=== PATIENT | female | born 1965 | race Caucasian/White ===

== ENCOUNTER 2016-09-22 18:31 | Emergency (ER) | payer OTHER ==
[2016-09-22 18:37] VITALS: TEMP 98.2; BMI 34.8
--- NOTE | 2016-09-22 18:39 | PDOC ---
Rapid Medical Evaluation Chief Complaint: Blood Pressure Problem Time Seen by Provider: 09/22/16 18:34 Medical Evaluation: Allergies Allergy/AdvReac Type Severity Reaction Status Date / Time No Known Allergies Allergy Verified 10/12/13 08:22 09/22/16 18:36 RME Note: I have performed a brief, in-person evaluation of this patient . This patient presents with CC: with relative who translates; CC vaginal bleeding x 1 month; also elevated B/P Pertinent PE findings are: YJ=198; 158/ 85 I have ordered: labs The patient will proceed to ED for further evaluation. JR 09/22/16 18:39
[2016-09-22 19:22] LABS: BASOPHIL 0.5 % (0-2.0); EOSINOPHIL 0.5 % (0-4.5); MCH 23.4 pg (25.7-33.7); MCHC 30.8 g/dl (32.0-36.0); MEAN CELL VOLUME 75.8 fl (80-96); MEAN PLT VOLUME 8.3 fl (7.5-11.1); NEUTROPHILS 82.3 % (42.8-82.8); PLATELET COUNT 369 K/MM3 (134-434); RDW 27.4 % (11.6-15.6)
[2016-09-22 19:39] LABS: INR 1.08 (0.82-1.09); PROTHROMBIN TIME (PATIENT) 11.9 SEC (9.98-11.88)
[2016-09-22 19:41] LABS: ACTIVATED PTT 29.2 SECONDS (26.9-34.4)
[2016-09-22 19:44] LABS: ALBUMIN 3.5 g/dl (3.4-5.0); ALK PHOS 77 U/L (45-117); ANION GAP 9 (8-16); BILIRUBIN,TOTAL 0.2 mg/dL (0.2-1.0); CALCIUM 8.7 mg/dL (8.5-10.1); CO2 24 mmol/L (21-32); CREATININE 0.9 mg/dL (0.55-1.02); GLUCOSE,RANDOM 125 mg/dL (74-106); SGOT/AST 11 U/L (15-37); SGPT/ALT 17 U/L (12-78); TOT PROT 6.9 g/dl (6.4-8.2)
--- NOTE | 2016-09-22 20:00 | PDOC ---
History of Present Illness - History of Present Illness Initial Comments: 09/22/16 20:41 Patient is a 51 year old female with significant medical hx of HTN, HLD, CAD, iron deficiency anemia, uterine fibroids who is presenting to the ED with one month of vaginal bleeding. Patient is accompanied by daughter who provided history. Daughter reports the patient has had progressive vaginal bleeding over the past month that has become significantly heavier this past week. The daughter states that the patient saturated a pad between the time of traveling from home to the ED. Today the patient was feeling exceptionally weak and has been having fluctuations in her blood pressure. The patient contacted her OB/ [facility] who referred her to the ED for further evaluation. RN OPERATING ROOM: Victorino Bush MD PMD: Val Alfaro MD <Yuli De Guzman - Last Filed: 09/22/16 20:49> - General History Source: Patient Exam Limitations: No Limitations <Alvin Chinchilla - Last Filed: 09/26/16 08:47> - General Chief Complaint: Vaginal Bleeding Stated Complaint: PCP SENT/BLOOD PRESSURE PROBLEM Time Seen by Provider: 09/22/16 18:34 Past History <Yuli De Guzman - Last Filed: 09/22/16 20:49> - Past Medical History HTN: Yes - Psycho/Social/Smoking Cessation Hx Suicidal Ideation: No Smoking History: Never smoked Information on smoking cessation initiated: No Hx Alcohol Use: No Drug/Substance Use Hx: No Substance Use Type: None <Alvin Chinchilla - Last Filed: 09/26/16 08:47> - Past Medical History Allergies/Adverse Reactions: Allergies Allergy/AdvReac Type Severity Reaction Status Date / Time No Known Allergies Allergy Verified 09/22/16 18:37 Home Medications: Ambulatory Orders Aspirin [ASA -] 81 mg PO DAILY 09/22/16 Ferrous Sulfate 325 mg PO DAILY 09/22/16 Lisinopril 10 mg PO DAILY 09/22/16 Medroxyprogesterone Acetate [Provera] 5 mg PO BID #28 tablet 09/22/16 Metoprolol Tartrate [Lopressor -] 50 mg PO DAILY 09/22/16 Review of Systems - Review of Systems Comments:: 09/22/16 20:43 GENERAL/CONSTITUTIONAL: Generalized weakness. No fever or chills. HEAD, EYES, EARS, NOSE AND THROAT: No change in vision. No ear pain or discharge. No sore throat. CARDIOVASCULAR: Blood pressure fluctuation. No chest pain or shortness of breath. RESPIRATORY: No cough, wheezing, or hemoptysis. GASTROINTESTINAL: No nausea, vomiting, diarrhea or constipation. GENITOURINARY: Heavy vaginal bleeding. No dysuria, frequency, or change in urination. MUSCULOSKELETAL: No joint or muscle swelling or pain. No neck or back pain. SKIN: No rash NEUROLOGIC: No headache, vertigo, loss of consciousness, or change in strength/ sensation. <Yuli De Guzman - Last Filed: 09/22/16 20:49> *Physical Exam - Vital Signs Last Vital Signs Temp Pulse Resp BP Pulse Ox 98.2 F 106 H 18 153/85 98 09/22/16 18:33 09/22/16 18:33 09/22/16 18:33 09/22/16 18:33 09/22/16 18:33 - Physical Exam Comments: 09/22/16 20:45 GENERAL: Tired appearing. Awake, alert, and fully oriented, in no acute distress HEAD: No signs of trauma EYES: PERRLA, EOMI, sclera anicteric, conjunctiva clear ENT: Auricles normal inspection, hearing grossly normal, nares patent, oropharynx clear without exudates. Moist mucosa NECK: Normal ROM, supple, no lymphadenopathy, JVD, or masses LUNGS: Breath sounds equal, clear to auscultation bilaterally. No wheezes, and no crackles HEART: Regular rate and rhythm, normal S1 and S2, no murmurs, rubs or gallops ABDOMEN: Soft, nontender, normoactive bowel sounds. No guarding, no rebound. No masses EXTREMITIES: Normal range of motion, no edema. No clubbing or cyanosis. No cords, erythema, or tenderness NEUROLOGICAL: Cranial nerves II through XII grossly intact. Normal speech, normal gait SKIN: Warm, Dry, normal turgor, no rashes or lesions noted. ENDOCRINE: No increased thirst. No abnormal weight change. HEMATOLOGIC/LYMPHATIC: No anemia, easy bleeding, or history of blood clots. ALLERGIC/IMMUNOLOGIC: No hives or skin allergy. PELVIC: Cervical os closed. No CMT. No adnexal tenderness. Blood in the vault. <Yuli De Guzman - Last Filed: 09/22/16 20:49> - Vital Signs Last Vital Signs Temp Pulse Resp BP Pulse Ox 98.2 F 106 H 18 153/85 98 09/22/16 18:33 09/22/16 18:33 09/22/16 18:33 09/22/16 18:33 09/22/16 18:33 <Alvin Chinchilla - Last Filed: 09/26/16 08:47> ED Treatment Course - LABORATORY CBC & Chemistry Diagram: 09/22/16 18:50 09/22/16 18:50 - ADDITIONAL ORDERS Additional order review: Laboratory Results 09/22/16 09/22/16 09/22/16 18:50 18:50 18:50 INR 1.08 PTT (Actin FS) 29.2 Sodium 140 Potassium 3.7 Chloride 107 Carbon Dioxide 24 Anion Gap 9 BUN 10 Creatinine 0.9 D Creat Clearance w eGFR > 60 Random Glucose 125 H D Calcium 8.7 Total Bilirubin 0.2 D AST 11 L D ALT 17 Alkaline Phosphatase 77 Total Protein 6.9 Albumin 3.5 Blood Type O POSITIVE Antibody Screen Negative 09/22/16 18:50 RBC 3.62 MCV 75.8 L MCHC 30.8 L RDW 27.4 H MPV 8.3 Neutrophils % 82.3 Lymphocytes % 10.4 D Monocytes % 6.3 Eosinophils % 0.5 Basophils % 0.5 - RADIOLOGY Radiograph Interpretation: 09/22/16 20:49 Transvaginal US Impression: Several uterine intramural lesions are noted suggestive of leiomyomas. Mild thickening heterogeneous endometrium measuring 0.9 cm. Reported By: Richard Guido MD <Yuli De Guzman - Last Filed: 09/22/16 20:49> - LABORATORY CBC & Chemistry Diagram: 09/22/16 18:50 09/22/16 18:50 - ADDITIONAL ORDERS Additional order review: Laboratory Results 09/22/16 18:50 Sodium 140 Potassium 3.7 Chloride 107 Carbon Dioxide 24 Anion Gap 9 BUN 10 Creatinine 0.9 D Creat Clearance w eGFR > 60 Random Glucose 125 H D Calcium 8.7 Total Bilirubin 0.2 D AST 11 L D ALT 17 Alkaline Phosphatase 77 Total Protein 6.9 Albumin 3.5 09/22/16 18:50 RBC 3.62 MCV 75.8 L MCHC 30.8 L RDW 27.4 H MPV 8.3 Neutrophils % 82.3 Lymphocytes % 10.4 D Monocytes % 6.3 Eosinophils % 0.5 Basophils % 0.5 - RADIOLOGY Radiology Studies Ordered: Category Date Time Status TRANSVAGINAL ULTRASOUND US [US] Stat Ultrasound 09/22/16 19:46 Ordered <Alvin Chinchilla - Last Filed: 09/26/16 08:47> Medical Decision Making - Medical Decision Making 09/22/16 20:09 A portion of this note was documented by scribe services under my direction. I have reviewed the details of the note, within reason, and agree with the documentation with the following case summary and management plan written by me. Patient treated in the ED. Nursing notes are reviewed and incorporated into the medical decision-making. Vital signs reviewed. Peripheral IV access obtained by the nurse, laboratory studies are drawn and sent, reviewed and interpreted by myself. Vital Signs Temp Pulse Resp BP Pulse Ox 98.2 F 106 H 18 153/85 98 09/22/16 18:33 09/22/16 18:33 09/22/16 18:33 09/22/16 18:33 09/22/16 18:33 51-year-old female with past medical history of iron deficiency anemia, hypertension, coronary disease presents to the emergency department for vaginal bleeding and generalized weakness. The patient was recently discharged on September 15 for a chest pain workup. She was subsequently discharged. She was noted at that time to have a hematocrit of 28. The patient has been having intermittent vaginal bleeding for a month and a half. Patient's printing machine operator tape rules and copywriting intern Dr. Bush has been evaluated the patient including a biopsy and suspects that this is fibroids. The bleeding has worsened last several days. The patient has been feeling generally weak but denies any chest pain or shortness of breath. Bleeding has become worse so the patient came to the ED. She denies any pain. Patient's hemoglobin is stable at this moment. However, we'll obtain a transvaginal ultrasound. Patient's copywriting intern is at the bedside Dr. Bush who will follow along. This bleeding is likely secondary to fibroids. 09/22/16 22:15 CBC, BMP 09/22/16 18:50 09/22/16 18:50 CMP Sodium 140 mmol/L (136-145) 09/22/16 18:50 Potassium 3.7 mmol/L (3.5-5.1) 09/22/16 18:50 Chloride 107 mmol/L (98-107) 09/22/16 18:50 Carbon Dioxide 24 mmol/L (21-32) 09/22/16 18:50 Anion Gap 9 (8-16) 09/22/16 18:50 BUN 10 mg/dL (7-18) 09/22/16 18:50 Creatinine 0.9 mg/dL (0.55-1.02) D 09/22/16 18:50 Creat Clearance w eGFR > 60 (>60) 09/22/16 18:50 Random Glucose 125 mg/dL (74-106) H D 09/22/16 18:50 Calcium 8.7 mg/dL (8.5-10.1) 09/22/16 18:50 Total Bilirubin 0.2 mg/dL (0.2-1.0) D 09/22/16 18:50 AST 11 U/L (15-37) L D 09/22/16 18:50 ALT 17 U/L (12-78) 09/22/16 18:50 Alkaline Phosphatase 77 U/L (45-117) 09/22/16 18:50 Creatine Kinase 57 IU/L (26-192) 09/22/16 18:50 Troponin I < 0.02 ng/ml (0.00-0.05) 09/22/16 18:50 Total Protein 6.9 g/dl (6.4-8.2) 09/22/16 18:50 Albumin 3.5 g/dl (3.4-5.0) 09/22/16 18:50 Labs reviewed. Hct stable. Ultrasound reviewed. Several uterine intramural lesions are noted suggestive of leiomyomas. The patient case was discussed with Dr. Trevino. Dr. Trevino had came and examined the patient. He recommends provera 5 mg BID x 2 weeks and follow up with Dr. Bush. Return precautions given. Patient is ambulatory and feels more reassured. I discussed the physical exam findings, ancillary test results and final diagnoses with the patient. I answered all of the patient's questions. The patient was satisfied with the care received and felt comfortable with the discharge plan and treatment plan. The patient will call their primary care physician within 24 hours to arrange follow-up and will return to the Emergency Department with any new, persistant or worsening symptoms. <Alvin Chinchilla - Last Filed: 09/26/16 08:47> *DC/Admit/Observation/Transfer - Attestations Scribe Attestion: 09/22/16 20:46 Documentation prepared by Yuli De Guzman, acting as medical reimbursement specialist for Alvin Chinchilla MD. <Yuli De Guzman - Last Filed: 09/22/16 20:49> - Discharge Dispostion Admit: No <Alvin Chinchilla - Last Filed: 09/26/16 08:47> Diagnosis at time of Disposition: Fibroid (bleeding) (uterine) Qualifiers: Uterine leiomyoma location: unspecified location Qualified Code(s): D25.9 - Leiomyoma of uterus, unspecified - Discharge Dispostion Disposition: HOME Condition at time of disposition: Stable - Prescriptions Prescriptions: Medroxyprogesterone Acetate [Provera] 5 mg PO BID #28 tablet - Referrals Referrals: Val Alfaro [Primary Care Provider] - Victorino Bush MD [Staff Physician] - - Patient Instructions Printed Discharge Instructions: Facts About Fibroids, DI for Uterine Fibroids Additional Instructions: Your bleeding is from your fibroids. Your Hct is stable. Please take the provera 5 mg every 12 hours as prescribed for the next 2 weeks. If you have uncontrollable bleeding, please return to the ER for further evaluation. Call Dr. Bush tomorrow and schedule a follow up.
[2016-09-22 20:52] LABS: ANISOCYTOSIS 3+; MICROCYTOSIS 2+; POLYCHROMASIA 1+
[2016-09-22 20:53] LABS: TROPONIN I < 0.02 ng/ml (0.00-0.05)
[2016-09-22 22:37] VITALS: BP 136/78; PULSE 84
--- NOTE | 2016-09-23 09:40 | EKG ---
Test Reason : Blood Pressure : / mmHG Vent. Rate : 085 BPM Atrial Rate : 085 BPM P-R Int : 150 ms QRS Dur : 072 ms QT Int : 350 ms P-R-T Axes : 045 032 030 degrees QTc Int : 416 ms NORMAL SINUS RHYTHM NONSPECIFIC ST ABNORMALITY ABNORMAL ECG WHEN COMPARED WITH ECG OF 12-OCT-2013 09:00, PREMATURE VENTRICULAR COMPLEXES ARE NO LONGER PRESENT Confirmed by YAEL TAMAYO MD ([id number]) on 09/23/2016 9:40:01 AM Referred By: Confirmed By:YAEL TAMAYO MD
== END 2016-09-22 22:37 | disposition home or self-care (01) ==
LOC: JER 18:31
DX: D25.9 Leiomyoma of uterus, unspecified (principal); D50.8 Other iron deficiency anemias; I10 Essential (primary) hypertension
CPT/HCPCS: 36415; 76830-TC; 80053; 82550; 84484; 85025; 85610; 85730; 86850; 86900; 86901; 93005; 93010; 99284-25

== ENCOUNTER 2016-10-10 20:04 | Inpatient (IN) | payer OTHER ==
--- NOTE | 2016-10-10 22:02 | PDOC ---
History of Present Illness <Rayne Cai - Last Filed: 10/11/16 00:15> - General History Source: Patient Exam Limitations: No Limitations - History of Present Illness Initial Comments: 10/10/16 23:57 Patient is a 51 year old female with significant medical hx of HTN, HLD, iron deficiency anemia, uterine fibroids who is presenting to the ED with two months of vaginal bleeding. Patient was seen in the ED 09/22 with the same complaint sent by her LICENSED REACTOR OPERATOR for further evaluation. Patient was seen by Dr. James, supervisor dehydrogenation LICENSED REACTOR OPERATOR, saw her during that ED visit. Patient had an transvaginal US and lab work last H&H was 8.5 and 27. Patient was prescribed Provera 5 mg PO BID for 2 weeks and was told to follow up. Patient has an appointment with her OB/ WEARING APPAREL SHAKER tomorrow but she was experiencing generalized weakness today on her way home that she presented to the ED tonight. Patient was seen in [facility] 09/14/16 and was admitted for htn had full work up and discharge home no history of CAD. LICENSED REACTOR OPERATOR: Victorino Bush MD PMD: Val Alfaro MD <Yandy Schwartz - Last Filed: 10/11/16 00:24> - General Chief Complaint: Revisit, Lab Variance Stated Complaint: VAGINAL BLEEDING/WEAKNESS Time Seen by Provider: 10/10/16 21:40 Past History - Past Medical History HTN: Yes - Reproductive History (#): 3 Para: 3 Cervical CA: No Dysfunctional Uterine Bleeding: Yes Ectopic : No Endometrial CA: No Polycystic Ovaries: No Therapeutic (s) & number: No Tubal Ligation: No Spontaneous : 0 - Immunization History Immunization Up to Date: Yes - Psycho/Social/Smoking Cessation Hx Suicidal Ideation: No Smoking History: Never smoked Hx Alcohol Use: No Drug/Substance Use Hx: No Substance Use Type: None <Rayne Cai - Last Filed: 10/11/16 00:15> <Yandy Schwartz - Last Filed: 10/11/16 00:24> - Past Medical History Allergies/Adverse Reactions: Allergies Allergy/AdvReac Type Severity Reaction Status Date / Time No Known Allergies Allergy Verified 10/10/16 20:27 Home Medications: Ambulatory Orders Ferrous Sulfate 325 mg PO DAILY 09/22/16 Lisinopril 10 mg PO DAILY 09/22/16 Medroxyprogesterone Acetate [Provera] 5 mg PO BID #28 tablet 09/22/16 Metoprolol Tartrate [Lopressor -] 50 mg PO DAILY 09/22/16 Review of Systems - Review of Systems Able to Perform ROS?: Yes Comments:: 10/10/16 23:58 CONSTITUTIONAL: Absent: fever, chills, diaphoresis, generalized weakness, malaise, loss of appetite HEENT: Absent: rhinorrhea, nasal congestion, throat pain, throat swelling, difficulty swallowing, mouth swelling, ear pain, eye pain, visual Changes CARDIOVASCULAR: Absent: chest pain, syncope, palpitations, irregular heart rate, lightheadedness , peripheral edema RESPIRATORY: Absent: cough, shortness of breath, dyspnea with exertion, orthopnea, wheezing, stridor, hemoptysis GASTROINTESTINAL: Absent: abdominal pain, abdominal distension, nausea, vomiting, diarrhea, constipation, melena, hematochezia GENITOURINARY: Present: vaginal bleeding Absent: dysuria, frequency, urgency, hesitancy, hematuria, flank pain, genital pain MUSCULOSKELETAL: Absent: myalgia, arthralgia, joint swelling SKIN: Absent: rash, itching, pallor HEMATOLOGIC/IMMUNOLOGIC: Absent: easy bleeding, easy bruising, lymphadenopathy, frequent infections ENDOCRINE: Absent: unexplained weight gain, unexplained weight loss, heat intolerance, cold intolerance NEUROLOGIC: Absent: headache, focal weakness or paresthesias, dizziness, unsteady gait, seizure, mental status changes, bladder or bowel incontinence PSYCHIATRIC: Absent: anxiety, depression, suicidal or homicidal ideation, hallucinations. <Yandy Schwartz - Last Filed: 10/11/16 00:24> *Physical Exam - Vital Signs Last Vital Signs Temp Pulse Resp BP Pulse Ox 98.5 F 100 H 20 126/65 99 10/10/16 20:28 10/10/16 20:28 10/10/16 20:28 10/10/16 20:28 10/10/16 20:28 <Rayne Cai - Last Filed: 10/11/16 00:15> - Vital Signs Last Vital Signs Temp Pulse Resp BP Pulse Ox 98.5 F 100 H 20 126/65 99 10/10/16 20:28 10/10/16 20:28 10/10/16 20:28 10/10/16 20:28 10/10/16 20:28 - Physical Exam Comments: 10/10/16 23:59 GENERAL: Well developed, well nourished. Awake and alert. No acute distress. HEENT: Normocephalic, atraumatic. PERRLA, EOMI. No conjunctival pallor. Sclera are non- icteric. Moist mucous membranes. Oropharynx is clear. NECK: Supple. Full ROM. No JVD. Carotid pulses 2+ and symmetric, without bruits. No thyromegaly. No lymphadenopathy. CARDIOVASCULAR: Regular rate and rhythm. No murmurs, rubs, or gallops. Distal pulses are 2+ and symmetric. PULMONARY: No evidence of respiratory distress. Lungs clear to auscultation bilaterally. No wheezing, rales or rhonchi. ABDOMINAL: Soft. Non-tender. Non-distended. No rebound or guarding. No organomegaly. Normoactive bowel sounds. MUSCULOSKELETAL Normal range of motion at all joints. No bony deformities or tenderness. No CVA tenderness. EXTREMITIES: No cyanosis. No clubbing. No edema. No calf tenderness. SKIN: Warm and dry. Normal capillary refill. No rashes. No jaundice. NEUROLOGICAL: Alert, awake, appropriate. Cranial nerves 2-12 intact. No deficits to light touch and temperature in face, upper extremities and lower extremities. No motor deficits in the in face, upper extremities and lower extremities. Normoreflexic in the upper and lower extremities. Normal speech. PSYCHIATRIC: Cooperative. Good eye contact. Appropriate mood and affect. PELVIC EXAM: +moderate bleeding. <Yandy Schwartz - Last Filed: 10/11/16 00:24> ED Treatment Course - LABORATORY CBC & Chemistry Diagram: 10/10/16 22:12 10/10/16 22:12 <Rayne Cai - Last Filed: 10/11/16 00:15> - LABORATORY CBC & Chemistry Diagram: 10/10/16 22:12 10/10/16 22:12 - ADDITIONAL ORDERS Additional order review: Laboratory Results 10/10/16 10/10/16 10/10/16 22:12 22:12 22:12 INR 1.13 Sodium 142 Potassium 4.0 Chloride 109 H Carbon Dioxide 23 Anion Gap 10 BUN 13 D Creatinine 0.8 Creat Clearance w eGFR > 60 Random Glucose 93 D Calcium 8.8 Total Bilirubin 0.3 D AST 8 L D ALT 17 Alkaline Phosphatase 63 Total Protein 6.5 Albumin 3.6 Blood Type O POSITIVE Antibody Screen Negative 10/10/16 22:12 RBC 2.90 L MCV 84.6 MCHC 30.6 L RDW 26.0 H MPV 7.9 Neutrophils % 66.3 Lymphocytes % 24.2 D Monocytes % 7.5 Eosinophils % 1.6 D Basophils % 0.4 <Yandy Schwartz - Last Filed: 10/11/16 00:24> Medical Decision Making - Medical Decision Making 10/10/16 23:56 A call was placed to Dr. Bush. Awaiting a call back from 10/11/16 00:22 Case discussed with doctor supervisor dehydrogenation. Patient will be admitted for the hospital and will be transfused. Patient requests any procedures to be done by her OB/ WEARING APPAREL SHAKER Dr. Bush. <Yandy Schwartz - Last Filed: 10/11/16 00:24> *DC/Admit/Observation/Transfer - Discharge Dispostion Admit: Yes <Rayne Cai - Last Filed: 10/11/16 00:15> - Attestations Scribe Attestion: 10/11/16 00:00 Documentation prepared by KELLY Marie, acting as medical records coder for Rayne Cai MD. <Yandy Schwartz - Last Filed: 10/11/16 00:24> Diagnosis at time of Disposition: Fibroid (bleeding) (uterine) Qualifiers: Uterine leiomyoma location: unspecified location Qualified Code(s): D25.9 - Leiomyoma of uterus, unspecified Anemia Qualifiers: Anemia type: unspecified type Qualified Code(s): D64.9 - Anemia, unspecified - Referrals Referrals: Val Alfaro [Primary Care Provider] -
[2016-10-10 22:32] LABS: BASOPHIL 0.4 % (0-2.0); EOSINOPHIL 1.6 % (0-4.5); MCH 25.9 pg (25.7-33.7); MCHC 30.6 g/dl (32.0-36.0); MEAN CELL VOLUME 84.6 fl (80-96); MEAN PLT VOLUME 7.9 fl (7.5-11.1); NEUTROPHILS 66.3 % (42.8-82.8); PLATELET COUNT 403 K/MM3 (134-434); WHITE BLOOD COUNT 6.9 K/mm3 (4.0-10.0)
[2016-10-10 22:47] LABS: INR 1.13 (0.82-1.09); PROTHROMBIN TIME (PATIENT) 12.5 SEC (9.98-11.88)
[2016-10-10 22:55] LABS: ALBUMIN 3.6 g/dl (3.4-5.0); ANION GAP 10 (8-16); BILIRUBIN,TOTAL 0.3 mg/dL (0.2-1.0); CALCIUM 8.8 mg/dL (8.5-10.1); CO2 23 mmol/L (21-32); CREATININE 0.8 mg/dL (0.55-1.02); GLUCOSE,RANDOM 93 mg/dL (74-106); SGOT/AST 8 U/L (15-37); SGPT/ALT 17 U/L (12-78); TOT PROT 6.5 g/dl (6.4-8.2)
[2016-10-10 22:56] LABS: ALK PHOS 63 U/L (45-117)
[2016-10-10 23:44] LABS: ANISOCYTOSIS 3+; HYPOCHROMIA 2+; MICROCYTOSIS 3+; OVALOCYTES 1+; PLATELET ESTIMATE ADEQUATE (NORMAL); POIKILOCYTOSIS 1+; TEAR DROP CELLS 1+
[2016-10-11] MEDS ORDERED: diphenhydrAMINE HCL 25 MG CAPSULE (FP) PO ONE ×2 (03:15→07:30)
[2016-10-11] MEDS ORDERED: ACETAMINOPHEN 325 MG TABLET (FP) PO ONE ×2 (03:15→07:30)
[2016-10-11 03:17] VITALS: BMI 32.1
--- NOTE | 2016-10-11 09:47 | HP ---
Admitting History and Physical - Primary Care Physician PCP: Victorino Bush - Admission Chief Complaint: 51 yo P3 with 3 weeks of persistent vaginal bleading, presented to ER c/o feeling very tiered, no chest pain, no palpitations, Hgb 7.5 , agreed to 2Units of packed cells History of Present Illness: reports 4 years of very irregular menses, skips 4 month at a time, now has very prolonged bleeding for 3 weeks, changing pads every hour; She also has known fibroid uterus History Source: Patient Limitations to Obtaining History: No Limitations (I speak patient's language) - Past Medical History Cardiovascular: Yes: HTN Hepatobiliary: Yes: Cholelithiasis Reproductive: Yes: Other (She has h/o D&C for DUB in 2013 in [facility] ...LMP: 10/08/16 ...LMP Comment: heavy bleeding for several weeks ...: No Heme/Onc: Yes: Anemia Additional Past Medical History: x 3 One child from cardiac defect - Past Surgical History Past Surgical History: Yes: Breast Biopsy, Cholecystectomy Additional Past Surgical History: D&C 2012 - Smoking History Smoking history: Never smoked Have you smoked in the past 12 months: No - Alcohol/Substance Use Hx Alcohol Use: No History of Substance Use: reports: None - Social History Usual Living Arrangement: Yes: Other (With family) Home Medications - Allergies Allergies/Adverse Reactions: Allergies Allergy/AdvReac Type Severity Reaction Status Date / Time No Known Allergies Allergy Verified 10/10/16 20:27 - Home Medications Home Medications: Ambulatory Orders Ferrous Sulfate 325 mg PO DAILY 09/22/16 Lisinopril 10 mg PO DAILY 09/22/16 Medroxyprogesterone Acetate [Provera] 5 mg PO BID #28 tablet 09/22/16 Metoprolol Tartrate [Lopressor -] 50 mg PO DAILY 09/22/16 Family Disease History - Family Disease History Family Disease History: Other: Mother (Breast CA) Physical Examination Vital Signs: Vital Signs Temperature 98.2 F 10/11/16 01:45 Pulse Rate 84 10/11/16 01:45 Respiratory Rate 16 10/11/16 01:45 Blood Pressure 135/75 10/11/16 01:45 O2 Sat by Pulse Oximetry (%) 97 10/11/16 01:45 Constitutional: Yes: Well Nourished Neck: Yes: WNL Cardiovascular: Yes: WNL Respiratory: Yes: WNL Gastrointestinal: Yes: WNL Renal/: Yes: WNL, Menses Present (Soaked pad) Musculoskeletal: Yes: WNL Extremities: Yes: WNL Edema: No ...Motor Strength: WNL Psychiatric: Yes: WNL Imaging - Results Ultrasound: Pending, Report Reviewed (July 2016 @ [facility] c/w 12wk size uterus, 7cm posterior wall fibroid and Bl overies normal) Assessment/Plan 51 yo P2 with DUB, anemia of blood loss, fibroid uterus failed course of Provera 2 Units of PRBC, receiving currently Current VSS Place on add on schedule for D&C today Repeat CBC @ 1500 IVF, NPO EKG with PVCs, repeat post transfusion
[2016-10-11] MEDS ORDERED: LISINOPRIL 10 MG TABLET (FP) PO SCH (10:00)
[2016-10-11] MEDS ORDERED: DEXTROSE 5%-LACTATED RINGERS 1,000 ML IV SCH (14:30)
[2016-10-11 15:30] LABS: BASOPHIL 1.2 % (0-2.0); EOSINOPHIL 1.5 % (0-4.5); MCH 26.1 pg (25.7-33.7); MCHC 31.2 g/dl (32.0-36.0); MEAN CELL VOLUME 83.4 fl (80-96); MEAN PLT VOLUME 7.9 fl (7.5-11.1); NEUTROPHILS 56.7 % (42.8-82.8); PLATELET COUNT 342 K/MM3 (134-434); RDW 23.6 % (11.6-15.6); WHITE BLOOD COUNT 5.8 K/mm3 (4.0-10.0)
--- NOTE | 2016-10-11 17:24 | EKG ---
Test Reason : Blood Pressure : / mmHG Vent. Rate : 081 BPM Atrial Rate : 081 BPM P-R Int : 160 ms QRS Dur : 080 ms QT Int : 372 ms P-R-T Axes : 042 038 024 degrees QTc Int : 432 ms SINUS RHYTHM WITH PREMATURE SUPRAVENTRICULAR COMPLEXES NONSPECIFIC ST ABNORMALITY ABNORMAL ECG WHEN COMPARED WITH ECG OF 11-OCT-2016 00:56, NO SIGNIFICANT CHANGE WAS FOUND Confirmed by CHELSI DICKSON, SONAL ([id number]) on 10/11/2016 5:24:36 PM Referred By: Jonatan WALSH Confirmed By:SONAL GAGNON MD
--- NOTE | 2016-10-11 17:33 | EKG ---
Test Reason : Blood Pressure : / mmHG Vent. Rate : 086 BPM Atrial Rate : 086 BPM P-R Int : 154 ms QRS Dur : 072 ms QT Int : 352 ms P-R-T Axes : 045 034 039 degrees QTc Int : 421 ms SINUS RHYTHM WITH PREMATURE VENTRICULAR COMPLEXES NONSPECIFIC ST ABNORMALITY ABNORMAL ECG WHEN COMPARED WITH ECG OF 22-SEP-2016 20:35, PREMATURE VENTRICULAR COMPLEXES ARE NOW PRESENT Confirmed by SONAL GAGNON MD ([id number]) on 10/11/2016 5:33:22 PM Referred By: Confirmed By:SONAL GAGNON MD
[2016-10-11] MEDS ORDERED: PROPOFOL 20 ML ONE ×2 (18:16→18:17)
[2016-10-11] MEDS ORDERED: MIDAZOLAM HCL 2 MG/2 ML SINGLE DOSE VIAL ONE (18:17)
[2016-10-11] MEDS ORDERED: LIDOCAINE HCL/PF 2% SDV 5ML VIAL ONE (18:18)
[2016-10-11] MEDS ORDERED: ceFAZolin SODIUM 1 GM VIAL ONE ×2 (18:39)
[2016-10-11] MEDS ORDERED: DEXAMETHASONE SOD PHOSPHATE 4 MG/1 ML VIAL ONE (18:39)
[2016-10-11] MEDS ORDERED: ceFAZolin SODIUM 1 GM VIAL IVPB ONE (18:40)
[2016-10-11] MEDS ORDERED: METOPROLOL SUCCINATE 50 MG TAB.SR.24H (FP) PO ONE (18:49)
[2016-10-11] MEDS ORDERED: PROMETHAZINE HCL 25 MG/1 ML VIAL IVPUSH PRN (19:09)
[2016-10-11] MEDS ORDERED: LACTATED RINGERS SOLUTION 1,000 ML IV SCH (19:15)
--- NOTE | 2016-10-11 21:05 | OP ---
Operative Note - Note: Operative Date: 10/11/16 Pre-Operative Diagnosis: Menometrorrhagia. Fibroid uterus. Anemia due to blood loss Operation: Suction, D&C Findings: Anteverted uterus ~8 wks size. Active bleeding. Post-Operative Diagnosis: Same as Pre-op Surgeon: Victorino Bush Anesthesia: General Specimens Removed: Endometrial curettings Estimated Blood Loss (mls): 100 Blood Volume Replaced (mls): 0 Fluid Volume Replaced (mls): 700 Operative Report Dictated: Yes
[2016-10-11 21:41] VITALS: BP 112/65; PULSE 67; TEMP 98.3
--- NOTE | 2016-10-12 19:51 | OP ---
DATE OF OPERATION: 10/11/2016 PREOPERATIVE DIAGNOSIS: Menometrorrhagia. Fibroid uterus. Anemia due to acute blood loss. PREOPERATIVE DIAGNOSIS: Menometrorrhagia. Fibroid uterus. Anemia due to acute blood loss. PROCEDURE: Suction dilation and curettage. SURGEON: Nicolette Scott M.D. GLOBE CLEANER: None. ANESTHESIOLOGIST: Alfredito Martinez M.D. ANESTHESIA: General. COMPLICATIONS: None. ESTIMATED BLOOD LOSS: 100 mL. INTRAVENOUS FLUIDS: 700 mL. PATHOLOGY: Endometrial curettings. FINDINGS: Anteverted uterus approximately 8 weeks in size, no pelvic or adnexal masses. Active bleeding was noted from the uterus at the beginning of procedure. Scant endometrial curettings were noted during the curettage. PROCEDURE: The patient was met preoperatively. Risks, benefits, and alternatives of surgery were discussed in detail. All questions were answered. The risks of infection, bleeding, scarring, pain, perforation of the uterus, injury to surrounding or underlying organs or structures, etc., were explained. The patient verbalized her understanding and requested to proceed with the surgery. The patient was brought to the OR with the IV running. She was placed on the surgical table in the supine position. General anesthesia was achieved without difficulty. The patient was then placed in a dorsal lithotomy position using adjustable Gómez stirrups. The patient was examined under anesthesia with the findings as described previously. The patient was then prepped and draped in the usual sterile fashion. A weighted speculum was introduced inside the vagina with good visualization of the cervix. The anterior cervical lip was grasped with a tenaculum. The cervical os was dilated to accommodate size 23 Gilmore dilator. A suction curettage was performed. A sharp uterine curettage was also performed afterwards. The tissue was submitted to pathology for evaluation. Good hemostasis was noted at the end of the procedure. All of the instruments were then removed from the patient. Sponge, lap, and instrument counts are correct. The patient was returned to supine position. The patient was transferred to recovery room in stable condition. NICOLETTE SCOTT M.D. [id number]
--- NOTE | 2016-10-13 12:27 | PATH ---
Surgical Pathology Report Patient Name: GENO LEBRON [facility]. Rec. 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 Specimen(s) Received ENDOMETRIAL CURETTINGS Clinical History Uterine fibroids, menorrhagia, anemia Final Diagnosis ENDOMETRIUM, CURETTAGE: FRAGMENTS OF INACTIVE AND FOCALLY DISORDERED PROLIFERATIVE ENDOMETRIUM WITH EXTENSIVE STROMAL AND GLANDULAR BREAKDOWN CHANGES ALONG WITH AREAS MOST SUGGESTIVE OF ENDOMETRIAL POLYP. FRAGMENTS OF BENIGN SMOOTH MUSCLE WITH OVERLYING ENDOMETRIUM SUGGESTIVE OF SUBMUCOSAL LEIOMYOMAS/ADENOMYOMAS. FRAGMENTS OF BENIGN ENDOCERVICAL TISSUE WITH FOCAL SQUAMOUS METAPLASIA. Electronically Signed Jefferson Grubbs M.D. Gross Description Received in formalin labeled "endometrial curettage" is a 7.5 x 5.5 x 0.9 cm aggregate of red-brown soft tissue fragments. The formalin is filtered and the specimen is entirely submitted in 9 cassettes. /10/12/2016 saudi10/12/2016
== END 2016-10-11 22:05 | disposition home or self-care (01) | DRG 760 ==
LOC: JER 20:04 → JERBED 10-11 00:16 → UNDOADMIN 10-11 00:39 → J3W 10-11 02:15
PROVIDERS: ADMIT Obstetrics & Gynecology; ATTEND Obstetrics & Gynecology
PROC: 30233N1 Transfusion of Nonautologous Red Blood Cells into Peripheral Vein, Percutaneous Approach (ICD-10-PCS; 2016-10-11)
PROC: 10D07Z8 Extraction of Products of Conception, Other, Via Natural or Artificial Opening (ICD-10-PCS; principal; 2016-10-11 13:00)
DX: D25.0 Submucous leiomyoma of uterus (principal); D62 Acute posthemorrhagic anemia; N92.1 Excessive and frequent menstruation with irregular cycle; E78.5 Hyperlipidemia, unspecified; I10 Essential (primary) hypertension
CPT/HCPCS: 36415; 36430; 71010-TC; 80053; 84703; 85025; 85610; 86850; 86900; 86901; 86922; 88305-TC; 93005; 93010; 94760; 99285-25; P9038; P9058

== ENCOUNTER 2017-06-09 05:16 | Day surgery (SDC) | payer OTHER ==
[2017-05-31 11:33] VITALS: BMI 31.8
--- NOTE | 2017-06-09 10:35 | HP ---
Past Medical History - Primary Care Physician PCP:: Victorino Bush - Admission Chief Complaint: 52yo P1 with menometrorrhagia and severe anemia admitted for D& C, hysteroscopy, endommetrial ablation. History of Present Illness: Bleeding for several weeks with anemia due to acute blood loss, weakness, dizziness. 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: Other (Meningioma) Cardiovascular: Yes: HTN Pulmonary: No: Asthma, Bronchitis, Cancer, COPD, O2 Dependent, Pneumonia, Previously Intubated, Pulmonary Embolus, Pulmonary Fibrosis, Sleep Apnea, Other Gastrointestinal: No: Ascites, Cancer, Constipation, Crohn's Disease, Diverticulitis, Diverticulosis, Esophageal Varices, Gastritis, GERD, GI Bleed, Hemorrhoids, Hiatal Hernia, Inflamatory Bowel Disease, Irritable Bowel Disease, Pancreatitis, Peptic Ulcer Disease, Ulcerative Colitis, Other Hepatobiliary: Yes: Cholelithiasis Renal/: Yes: Other (adrenal adenoma) Reproductive: Yes: Fibroids ...Para: 1 Heme/Onc: Yes: Anemia Infectious Disease: No: AIDS, C-Diff, Herpes Zoster, HIV, MRSA, STD's, Tuberculosis, VREF, Other Psych: No: Addictions, Anxiety, Bipolar, Depression, Panic, Psychosis, Schizophrenia, Other Musculoskeletal: No: Bursitis, Chronic low back pain, Hemiparesis, Hemiplegia, Osteoarthritis, Paraplegia, Other Rheumatology: No: Fibromyalgia, Gout, Lupus, Rheumatoid Arthritis, Sarcoidosis, Vasculitis, Other ENT: No: Allergic Rhinitis, Sinusitis, Other Endocrine: Yes: Hyperthyroidism, Other (Thyroid nodule) Dermatology: No: Basal Cell, Cellulitis, Eczema, Melanoma, Psoriasis, Squamous Cell, Other - Past Surgical History Past Surgical History: Yes: Breast Biopsy, Cholecystectomy Hx Myomectomy: No Hx Transabdominal Cerclage: No Additional Surgical History: D&C 10/2016 - Smoking History Smoking history: Never smoked Have you smoked in the past 12 months: No - Alcohol/Substance Use Hx Alcohol Use: No History of Substance Use: reports: None - Social History Usual Living Arrangement: Yes: With Child ADL: Independent 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 History of Recent Travel: No Home Medications - Allergies Allergies/Adverse Reactions: Allergies Allergy/AdvReac Type Severity Reaction Status Date / Time No Known Allergies Allergy Verified 10/10/16 20:27 - Home Medications Home Medications: Ambulatory Orders Ferrous Sulfate 325 mg PO DAILY 09/22/16 Escitalopram Oxalate [Lexapro -] 5 mg PO DAILY 06/09/17 Multivitamins [Tab-A-Vit -] 1 tab PO DAILY 06/09/17 Valsartan 160 mg PO BID 06/09/17 Family Disease History - Family Disease History Family Disease History: Other: Mother (Breast CA) Review of Systems - Review of Systems Constitutional: reports: Weakness Eyes: reports: No Symptoms HENT: reports: No Symptoms Neck: reports: No Symptoms Cardiovascular: reports: No Symptoms Respiratory: reports: No Symptoms Gastrointestinal: reports: No Symptoms Genitourinary: reports: Vaginal Bleeding Breasts: reports: No Symptoms Reported Musculoskeletal: reports: No Symptoms Integumentary: reports: No Symptoms Neurological: reports: No Symptoms Endocrine: reports: No Symptoms Hematology/Lymphatic: reports: No Symptoms Psychiatric: reports: No Symptoms Pain Intensity: 0 Physical 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 Vital Signs: Vital Signs Temperature 97.4 F L 06/09/17 06:42 Pulse Rate 79 06/09/17 06:42 Respiratory Rate 20 06/09/17 06:42 Blood Pressure 122/62 06/09/17 06:42 O2 Sat by Pulse Oximetry (%) 99 06/09/17 06:42 Constitutional: Yes: No Distress, Calm, Obese Eyes: Yes: WNL, Conjunctiva Clear, EOM Intact HENT: Yes: WNL, Atraumatic, Normocephalic Neck: Yes: WNL, Supple, Trachea Midline Cardiovascular: Yes: WNL, Regular Rate and Rhythm Respiratory: Yes: WNL, Regular, CTA Bilaterally Gastrointestinal: Yes: WNL, Normal Bowel Sounds, Soft ...Rectal Exam: Yes: Deferred Renal/: Yes: WNL External Genitalia: Yes: Normal Internal Exam Deferred: No Vaginal Exam: Yes: Normal, Bleeding Cervix: Yes: Normal Uterus: Yes: Normal, Enlarged Adnexa: Normal: Left, Right Musculoskeletal: Yes: WNL Extremities: Yes: WNL Edema: No Integumentary: Yes: WNL Neurological: Yes: WNL, Alert, Oriented ...Motor Strength: WNL Psychiatric: Yes: WNL, Alert, Oriented Imaging - Results X-ray: Report Reviewed Ultrasound: Report Reviewed EKG: Report Reviewed Assessment/Plan 52yo P1 with menometrorrhagia and severe anemia admitted for D&C, hysteroscopy, endommetrial ablation. We had a long discussion about the risks, benefits, and alternatives of surgery. I explained the risks of infection, bleeding, scarring , amenorrhea, Asherman's syndrome, infertility, perforation, burn, need for additional surgery to treat any complications, etc. The pt declined expectant management, hysterectomy, medications, etc.. She requested to proceed with surgery. The pt is transfused 1u PRBC preop. Plan to proceed, as planned.
[2017-06-09] MEDS ORDERED: MIDAZOLAM HCL 2 MG/2 ML SINGLE DOSE VIAL ONE (11:02)
[2017-06-09] MEDS ORDERED: PROPOFOL 20 ML ONE ×2 (11:02)
[2017-06-09] MEDS ORDERED: DEXAMETHASONE SOD PHOSPHATE 4 MG/1 ML VIAL ONE (11:29)
[2017-06-09] MEDS ORDERED: ceFAZolin SODIUM 1 GM VIAL ONE (11:29)
[2017-06-09] MEDS ORDERED: ceFAZolin SODIUM 1 GM VIAL IVPB ONE (11:33)
[2017-06-09] MEDS ORDERED: ONDANSETRON 4 MG/2 ML VIAL IVPUSH PRN (12:23)
[2017-06-09] MEDS ORDERED: oxyCODONE HCL 5 MG TABLET PO PRN (12:23)
[2017-06-09] MEDS ORDERED: LACTATED RINGERS SOLUTION 1,000 ML IV SCH (12:30)
[2017-06-09 13:39] VITALS: TEMP 97.8
--- NOTE | 2017-06-09 13:52 | OP ---
Operative Note - Note: Operative Date: 06/09/17 Pre-Operative Diagnosis: Menometrorrhagia, anemia due to acute blood loss, fibroid uterus. Operation: Hysteroscopy, D&C, endometrial ablation via [facility] Findings: Active uterine bleeding Enlarged uterine cavity ~9cm with posterior myoma Good hemostasis and no bleeding at end of procedure. Post-Operative Diagnosis: Same as Pre-op Surgeon: Victorino Bush Anesthesiologist/MILITARY SOURCE OPERATIONS OFFICER: Silvia Lan Anesthesia: General Specimens Removed: Endometrial curettings Estimated Blood Loss (mls): 30 Blood Volume Replaced (mls): 0 Fluid Volume Replaced (mls): 900 Operative Report Dictated: Yes
[2017-06-09] MEDS ORDERED: ACETAMINOPHEN 325 MG TABLET (FP) ONE (15:19)
[2017-06-09] MEDS ORDERED: ACETAMINOPHEN 325 MG TABLET (FP) PO ONE ×2 (15:25→15:30)
[2017-06-09 15:32] VITALS: BP 149/78; PULSE 80
--- NOTE | 2017-06-10 06:48 | OP ---
DATE OF OPERATION: 06/09/2017 PREOPERATIVE DIAGNOSES: Menometrorrhagia, anemia due to acute blood loss, fibroid uterus. POSTOPERATIVE DIAGNOSES: Menometrorrhagia, anemia due to acute blood loss, fibroid uterus. PROCEDURE: Hysteroscopy, dilation and curettage, endometrial ablation via [facility] system. SURGEON: Victorino Bush MD ANESTHESIOLOGIST: Silvia Lan MD ANESTHESIA: General. COMPLICATIONS: None. PATHOLOGY: Endometrial curettings. IV FLUIDS: 900 mL crystalloid. ESTIMATED BLOOD LOSS: 30 mL. FINDINGS: Examination under anesthesia revealed a slightly enlarged uterus with the posterior myoma. No adnexal masses. Hysteroscopy revealed a slightly enlarged endometrial cavity approximately 9 cm in length with a posterior myoma. The overall contours of the cavity appeared to be within normal limits. Active uterine bleeding was noted on examination under anesthesia prior to surgery. DESCRIPTION OF PROCEDURE: The patient was met preoperatively. Risks, benefits, and alternatives of surgery were discussed in detail. All questions were answered. The patient was then brought to the OR with the IV running. The patient was placed in a supine position on the surgical table. The general anesthesia was achieved without difficulty. The patient was then placed in a dorsal lithotomy position using adjustable Gómez stirrups. She was examined under anesthesia with the findings as described above. There was active uterine bleeding noted during the examination. The patient was then prepped and draped in the usual sterile fashion. A time-out procedure was conducted as per standard protocol. The surgeon then proceeded with the operation. A weighted speculum was introduced inside the vagina with good visualization of the cervix. The cervix was grasped with a single-tooth tenaculum. The cervical os did not need to be dilated and was found to be parous. There was vaginal bleeding noted from the uterus. A diagnostic hysteroscopy was then performed with the findings as described above. Once the diagnosis hysteroscopy was completed, the hysteroscope was removed. A sharp uterine curettage was performed, and the tissue was sent to Pathology. The hysteroscope was then once again introduced inside the uterine cavity. Endometrial ablation was then performed using [facility] system without complications. Good fluid seal was maintained during the entire procedure. There was no fluid loss during hysteroscopy or endometrial ablation. The procedure was completed with excellent results. Once the procedure was finished, all of the instruments were removed from the patient. Good hemostasis was noted. There was no further uterine bleeding. Sponge, lap, and instrument counts were correct. The patient was returned to supine position and transferred to recovery room awake and in stable condition. Timmy [id number]
--- NOTE | 2017-06-12 11:15 | PATH ---
Surgical Pathology Report Patient Name: GENO LEBRON [facility]. Rec. #: [id number] /Age/Gender: 1965 (Age: 52) / F Account: [id number] Location: [facility] SURGICAL Taken: 06/09/2017 Received: 06/09/2017 Reported: 06/12/2017 Physicians: Victorino Bush M.D. Specimen(s) Received ENDOMETRIAL CURETTINGS Clinical History Preoperative diagnosis: Anemia, menorrhagia, fibroid uterus Postoperative diagnosis: Same Final Diagnosis ENDOMETRIUM, CURETTING: FRAGMENT OF BENIGN ENDOMETRIAL POLYP, ALONG WITH DISORDERED PROLIFERATIVE ENDOMETRIUM WITH AREAS OF STROMAL AND GLANDULAR BREAKDOWN. Comment: Recommend correlation with clinical findings and follow up as clinically indicated. Also see prior specimen [id number]. Electronically Signed Andrea Kennedy M.D. Gross Description Received in formalin labeled "endometrial curettings," is a 2.5 x 2.5 x 0.3 cm aggregate of rhodes red soft tissue fragments. The formalin is filtered and the specimen is entirely submitted in one cassette. /06/09/2017 saudi06/09/2017
== END 2017-06-09 15:53 | disposition home or self-care (01) ==
LOC: JASU-SURG 05:16
PROVIDERS: ATTEND Obstetrics & Gynecology
PROC: 0U5B8ZZ Destruction of Endometrium, Via Natural or Artificial Opening Endoscopic (ICD-10-PCS; principal; 2017-06-09 10:00)
PROC: 0UDB8ZX Extraction of Endometrium, Via Natural or Artificial Opening Endoscopic, Diagnostic (ICD-10-PCS; 2017-06-09 10:00)
DX: N92.1 Excessive and frequent menstruation with irregular cycle (principal); D62 Acute posthemorrhagic anemia; D25.9 Leiomyoma of uterus, unspecified
CPT/HCPCS: 36430; 36511; 84703; 88305-TC; P9038; P9058

== ENCOUNTER 2020-02-13 07:22 | Observation (INO) | payer OTHER ==
[2020-02-13 07:49] VITALS: BMI 34.7
--- NOTE | 2020-02-13 08:02 | PDOC ---
History of Present Illness - General Chief Complaint: Chest Pain Stated Complaint: CHEST PAIN Time Seen by Provider: 02/13/20 07:43 History Source: Patient Exam Limitations: No Limitations - History of Present Illness Initial Comments: 02/13/20 10:18 54 yo F with a hx of HTN, GERD, HLD, and "borderline" DM presents to the emergency department with chest pain that began this morning at approximately 8am. Per the patient, she was laying in her bed when she felt a sudden onset of sharp and burning in the center of her chest that was constant. She took her medications, which consisted of tramadol, metoprolol, and losartan and felt progressive relief 2 hours later. The patient reported she had a concurrent elevation in her blood pressure of 170/105. Per the daughter, the patient has had increased stress due to familial issues in the home. Denies the following: fevers, chills, nausea, vomiting, lightheadedness, abdominal pain, neck pain, dysuria, hematuria, diarrhea, and leg pain/swelling. Past History - Medical History Allergies/Adverse Reactions: Allergies Allergy/AdvReac Type Severity Reaction Status Date / Time nitroglycerin AdvReac Verified 02/13/20 07:44 [From Nitrostat] Home Medications: Ambulatory Orders Multivitamins [Tab-A-Vit -] 1 tab PO DAILY 06/09/17 Amlodipine Besylate [Norvasc -] 5 mg PO DAILY 02/13/20 Atorvastatin Ca [Lipitor] 20 mg PO DAILY 02/13/20 Carvedilol 6.25 mg PO DAILY 02/13/20 Metoprolol Tartrate 25 mg PO PRN 02/13/20 Diclofenac Potassium 50 mg PO TID 02/14/20 Ergocalciferol (Vitamin D2) [Vitamin D2] 50,000 unit PO WEEKLY 02/14/20 Escitalopram Oxalate [Lexapro -] 10 mg PO DAILY 02/14/20 Irbesartan/Hydrochlorothiazide [Irbesartan-Hctz 300-12.5 mg Tb] 1 tab PO DAILY 02/14/20 Quetiapine Fumarate [Seroquel -] 50 mg PO HS 02/14/20 Tramadol HCl 50 mg PO BID 02/14/20 Anemia: Yes Asthma: No Cancer: No Cardiac Disorders: No CVA: No COPD: No CHF: No Dementia: No Diabetes: Yes (BORDERLINE) GI Disorders: No Disorders: No HTN: Yes Hypercholesterolemia: Yes Liver Disease: No Seizures: No Thyroid Disease: No - Surgical History Abdominal Surgery: No Appendectomy: No Cardiac Surgery: No Cholecystectomy: Yes (5 yrs ago) Lung Surgery: No Neurologic Surgery: No Orthopedic Surgery: No - Reproductive History Is Patient Now?: No (#): 3 Para: 3 Cervical CA: No Dysfunctional Uterine Bleeding: Yes Ectopic : No Endometrial CA: No Polycystic Ovaries: No Therapeutic (s) & number: No Tubal Ligation: No Spontaneous : 0 - Immunization History Immunization Up to Date: Yes - Psycho-Social/Smoking History Smoking History: Never smoked Have you smoked in the past 12 months: No Cigars Per Day: 0 Information on smoking cessation initiated: No - Substance Abuse Hx (Audit-C & DAST Scrn) How often the patient has a drink containing alcohol: Never Score: In Men: 4 or > Positive; In Women: 3 or > Positive: 0 Screen Result (Pos requires Nsg. Audit-10AR): Negative In the last yr the pt used illegal drug/Rx for NonMed reason: No Score: Yes response is considered Positive: 0 Screen Result (Positive result requires Nsg. DAST-10): Negative Review of Systems - Review of Systems Able to Perform ROS?: Yes Is the patient limited Chinese proficient: No Constitutional: No: Chills, Diaphoresis, Fever, Weakness HEENTM: No: Eye Pain, Ear Pain, Nose Pain, Throat Pain, Mouth Pain Respiratory: No: Cough, Shortness of Breath Cardiac (ROS): Yes: Chest Pain. No: Lightheadedness, Palpitations ABD/GI: No: Nausea, Vomiting : No: Burning, Dysuria, Hematuria Musculoskeletal: No: Joint Pain Integumentary: No: Change in Color Neurological: No: Headache Psychiatric: No: Change in Appetite Endocrine: No: Change in Weight Hematologic/Lymphatic: No: Anemia *Physical Exam - Vital Signs Last Vital Signs Temp Pulse Resp BP Pulse Ox 97.8 F 77 18 143/86 97 02/13/20 07:34 02/13/20 07:34 02/13/20 07:34 02/13/20 07:34 02/13/20 07:34 - Physical Exam General Appearance: Yes: Nourished, Appropriately Dressed. No: Apparent Distress, Intoxicated HEENT: positive: EOMI, JEY, Normal Voice, Symmetrical, Pharynx Normal, Hearing Grossly Normal. negative: Pale Conjunctivae, Scleral Icterus (R), Scleral Icterus (L), Muffled/Hoarse voice, Pharyngeal Erythema, Tonsillar Exudate, Tonsillar Erythema, Nasal Congestion, Rhinorrhea, Sinus Tenderness Neck: positive: Trachea midline, Supple. negative: Tender, Lymphadenopathy (R), Lymphadenopathy (L) Respiratory/Chest: positive: Lungs Clear. negative: Chest Tender, Normal Breath Sounds (decreased breath sounds bilaterally), Respiratory Distress, Accessory Muscle Use Cardiovascular: positive: Regular Rhythm, Regular Rate, S1, S2. negative: Systolic Murmur Gastrointestinal/Abdominal: positive: Normal Bowel Sounds, Flat, Soft. negative: Tender, Rebound, Tenderness Lymphatic: negative: Adenopathy Musculoskeletal: positive: Normal Inspection. negative: CVA Tenderness, Vertebral Tenderness Extremity: positive: Normal Capillary Refill, Normal Inspection, Normal Range of Motion. negative: Tender Integumentary: positive: Normal Color, Dry, Warm Neurologic: positive: Fully Oriented, Alert, Normal Mood/Affect Heart Score/ECG Review - History History: Moderately suspicious - Electrocardiogram EKG: Non specific repolarization disturbance - Age Age: 45-65 - Risk Factors Risk Factors Heart Score: Yes Hx Hypercholesterolemia, Yes Hx Hypertension, Yes Hx Diabetes Based on the list above the patient has:: >/=3 risk factors or Hx atherosclerotic disease - Troponin Troponin: </= normal limit - Score Heart Score - Total: 5 ED Treatment Course - LABORATORY CBC & Chemistry Diagram: 02/14/20 05:30 02/14/20 05:30 Medical Decision Making - Medical Decision Making 54 yo F with a hx of HTN, GERD, HLD, and "borderline" DM presents to the emergency department with chest pain that began this morning at approximately 8am. Initial vitals" Initial Vital Signs Temp Pulse Resp BP Pulse Ox 97.8 F 77 18 143/86 97 02/13/20 07:34 02/13/20 07:34 02/13/20 07:34 02/13/20 07:34 02/13/20 07:34 Work up: EKG: NSR without ST elevations or depressions. TWI noted in III work up consists of ACS vs pleural effusions vs PNA vs pleuritis Laboratory Tests 02/13/20 02/13/20 02/13/20 08:48 08:48 08:48 WBC 6.1 RBC 4.57 Hgb 13.8 Hct 40.5 D MCV 88.7 MCH 30.2 MCHC 34.1 RDW 14.5 D Plt Count 236 D MPV 9.4 D Absolute Neuts (auto) 3.7 Neutrophils % 60.9 Lymphocytes % 27.3 Monocytes % 8.9 Eosinophils % 2.0 Basophils % 0.9 Nucleated RBC % 0 PT with INR 11.70 INR 0.99 Sodium 139 Potassium 3.7 Chloride 105 Carbon Dioxide 25 Anion Gap 9 BUN 13.0 Creatinine 0.8 Est GFR (CKD-EPI)AfAm 98.24 Est GFR (CKD-EPI)NonAf 84.76 Random Glucose 113 H Calcium 9.3 Total Bilirubin 0.6 AST 25 ALT 36 Alkaline Phosphatase 94 Creatine Kinase 62 Troponin I < 0.02 Total Protein 7.3 Albumin 3.7 COVID-19 ([facility]) 02/13/20 12:59 WBC RBC Hgb Hct MCV MCH MCHC RDW Plt Count MPV Absolute Neuts (auto) Neutrophils % Lymphocytes % Monocytes % Eosinophils % Basophils % Nucleated RBC % PT with INR INR Sodium Potassium Chloride Carbon Dioxide Anion Gap BUN Creatinine Est GFR (CKD-EPI)AfAm Est GFR (CKD-EPI)NonAf Random Glucose Calcium Total Bilirubin AST ALT Alkaline Phosphatase Creatine Kinase Troponin I Total Protein Albumin COVID-19 ([facility]) Not detected trop negative due to risk factors, will admit patient for tele obs Discharge - Discharge Information Problems reviewed: Yes Clinical Impression/Diagnosis: Precordial chest pain Condition: Stable - Follow up/Referral - Patient Discharge Instructions - Post Discharge Activity
[2020-02-13 09:24] LABS: INR 0.99 (0.83-1.09); PROTHROMBIN TIME (PATIENT) 11.7 SEC (9.7-13.0)
[2020-02-13 09:25] LABS: BASO % 0.9 % (0-2.0); HEMATOCRIT 40.5 % (32.4-45.2); HEMOGLOBIN 13.8 GM/dL (10.7-15.3); LYMPH % 27.3 % (8-40); MCH 30.2 pg (25.7-33.7); MCHC 34.1 g/dl (32.0-36.0); MEAN CELL VOLUME 88.7 fl (80-96); MEAN PLT VOLUME 9.4 fl (7.5-11.1); MONO % 8.9 % (3.8-10.2); NEUT % 60.9 % (42.8-82.8); PLATELET COUNT 236 K/MM3 (134-434); RBC 4.57 M/mm3 (3.60-5.2); RDW 14.5 % (11.6-15.6); WHITE BLOOD COUNT 6.1 K/mm3 (4.0-10.0)
[2020-02-13 09:54] LABS: ALBUMIN 3.7 g/dl (3.4-5.0); ALK PHOS 94 U/L (45-117); ANION GAP 9 MMOL/L (8-16); BILIRUBIN,TOTAL 0.6 mg/dL (0.2-1); CALCIUM 9.3 mg/dL (8.5-10.1); CHLORIDE 105 mmol/L (98-107); CO2 25 mmol/L (21-32); CREATININE 0.8 mg/dL (0.55-1.3); GLUCOSE,RANDOM 113 mg/dL (74-106); POTASSIUM 3.7 mmol/L (3.5-5.1); SGOT/AST 25 U/L (15-37); SGPT/ALT 36 U/L (13-61); SODIUM 139 mmol/L (136-145); TOT PROT 7.3 g/dl (6.4-8.2)
[2020-02-13] MEDS ORDERED: ACETAMINOPHEN 1000 MG/100 ML VIAL (NON FORMULARY) IVPB ONE (09:56)
--- NOTE | 2020-02-13 10:00 | PDOC ---
Attending Attestation - Resident Resident Name: AnibalJefferson - ED Attending Attestation I have performed the following: I have examined & evaluated the patient, The case was reviewed & discussed with the resident, I agree w/resident's findings & plan - HPI HPI: 02/13/20 09:56 54-year-old female with history of hypertension, high cholesterol, borderline diabetes presents after she was awoken from sleep with substernal chest pain and bilateral arm tingling. Now with residual chest discomfort, no motor or sensory deficit. No associated palpitations or shortness of breath, no clear history of exertional chest pain or dyspnea. Stress test last year was reportedly normal, never required a catheterization. - Physicial Exam PE: 02/13/20 09:57 Vital signs stable Well-appearing seated comfortably in stretcher Ambulating in the emergency department Heart is regular, lungs are clear Abdomen benign No edema or calf tenderness - Medical Decision Making 02/13/20 09:57 54-year-old female awoken from sleep with chest pain. Atypical clinical picture but patient does have risk factors for ACS, still with ongoing discomfort. r/o ACS, dissection less clinically likely but on ddx Labs EKG, chest x-ray Aspirin Admit for further cardiac work-up 02/13/20 10:33 labs wnl including trop cxr with prominent aorta. given chest pain radiating to back, r/o dissection with cta. admit Heart Score/ECG Review #1 ECG reviewed & interpreted by me at: 07:33 General ECG Interpretation: Sinus Rhythm, Normal Rate (71), Normal Intervals (qtc 406), No acute ischemic changes (ST abnormality V5V6 without elevation/depression) Compared to previous ECG there are: No significant change (c/w 05/26) #2 ECG reviewed & interpreted by me at: 16:27 General ECG Interpretation: Sinus Rhythm, Normal Rate (68), Normal Intervals (qtc 421), No acute ischemic changes Discharge - Discharge Information Problems reviewed: Yes Clinical Impression/Diagnosis: Precordial chest pain - Follow up/Referral - Patient Discharge Instructions - Post Discharge Activity
[2020-02-13] MEDS ORDERED: ACETAMINOPHEN INJECTION 100 ML IVPB ONE (10:03)
--- NOTE | 2020-02-13 14:11 | PN ---
Teaching Attending Note Name of Resident: Ольга Serrano ATTENDING PHYSICIAN STATEMENT I saw and evaluated the patient. I reviewed the resident's note and discussed the case with the resident. I agree with the resident's findings and plan as documented. SUBJECTIVE: 54 year old female with known history of hysteroscopic ablation of the endomet rium, pneumonia, anemia, hypertension, high cholesterol, borderline diabetes mellitus type 2, morbid obesity, history of cholecystectomy, ?goiter (off meds) who presents to the ED complaining of chest pains of several hours' duration. Daughter who was at bedside served as mushroom grower. Apparently woke up about 4 am with central substernal chest pains, with radiation to bilateral arms and the back of the neck. Denied shortness of breath, nausea, diaphoresis. She took her usual blood pressure medications and aspirin, with transient improvement in symptoms, followed by recurrence. She woke her daughter up around 6 am who then called EMS OBJECTIVE: Gen: Morbidly obese female who appears appropriate for stated age and not in acute distress HEENT: EOMI neck: supple, pronounced soft tissue swelling at the anterior neck chest: clear breath sounds CVS: RRR, no murmurs abd: soft, nontender, nondistended, +BS ext: no edema, feet are warm and dry breaker hand; no motor nor sensory deficit ROS: 10 point review of systems negative except she was diagnosed with anxiety lately and given medications ASSESSMENT AND PLAN: 1. Atypical chest pains - she has multiple risk factors for CAD - Ddx: ACS, aortic dissection, GERD - CT scan showed slightly prominent aorta but not conclusive - aspirin, lipid profile - cardiac monitoring - EKG pending 2. DM 2 - a1c, SSI, accuchecks - 2 gram sodium 1800 ADA diet 3. HTN - cont home meds - cont close monitoring 4. ?Goiter - she was previously seeing an diabetes trainer but lost to follow up - check TSH 5. Anxiety - cont medication 6. DVT prophylaxis - Lovenox DW Ольга Howard. Agree with exam, management.
[2020-02-13] MEDS ORDERED: ENOXAPARIN NA (PORCINE) 40 MG/0.4 ML DISP.SYRIN SQ ONE (15:09)
[2020-02-13] MEDS: ENOXAPARIN NA (PORCINE) 40 MG/0.4 ML DISP.SYRIN SQ SCH (15:14)
--- NOTE | 2020-02-13 15:50 | HP ---
CHIEF COMPLAINT: Chest Pain PCP: Dr. Hood ([place]) HISTORY OF PRESENT ILLNESS: 54 y/o F PMHx HTN (with multiple hospitalization for elevated BP), HLD, GERD, ?DM, Recently diagnosed with Anxiety (started on SSRI) presents with chest pain. Patient is primarily Ukranian speaking, thus the daughter at bed sided aided in providing HPI. Briefly, Patient woke with substernal chest pain; She felt it was related to her BP and measured a BP of 170/105. She took her AM Antihypertensives with no relief and was brought to [facility] by EMS. No smoking hx. Does not have a FHx significant for cardiac disease, stroke, PE. Daughter mentions recent increase in stress due to family issues; Patient has a son who lives alone in [facility], who is addicted to alcohol and subsequently going through a divorce. PHYSICAL EXAMINATION Vital Signs - 24 hr 02/13/20 02/13/20 02/13/20 07:34 13:06 13:08 Temperature 97.8 F Pulse Rate 77 Pulse Rate [ 79 Apical] Respiratory 18 18 Rate Blood Pressure 143/86 Blood Pressure 130/81 [Right Arm] O2 Sat by Pulse 97 98 99 Oximetry (%) GENERAL: A&Ox3, NAD HEAD: NCAT EYES: PERRL, EOMI ENT: Oropharynx clear without exudates. Moist mucous membranes. Upper and lower Dentures NECK: No JVD LUNGS: Diminished breath sounds at the bases, Otherwise CTAB, No wheezes, no crackles HEART: RRR, S1 S2 ABDOMEN: Obese, Soft, nontender, not distended, + bowel sounds, no guarding, no rebound EXTREMITIES: No peripheral edema. PSYCHIATRIC: Anxious SKIN: Warm, dry Laboratory Results - last 24 hr 02/13/20 02/13/20 02/13/20 08:48 08:48 08:48 WBC 6.1 RBC 4.57 Hgb 13.8 Hct 40.5 D MCV 88.7 MCH 30.2 MCHC 34.1 RDW 14.5 D Plt Count 236 D MPV 9.4 D Absolute Neuts (auto) 3.7 Neutrophils % 60.9 Lymphocytes % 27.3 Monocytes % 8.9 Eosinophils % 2.0 Basophils % 0.9 Nucleated RBC % 0 PT with INR 11.70 INR 0.99 Sodium 139 Potassium 3.7 Chloride 105 Carbon Dioxide 25 Anion Gap 9 BUN 13.0 Creatinine 0.8 Est GFR (CKD-EPI)AfAm 98.24 Est GFR (CKD-EPI)NonAf 84.76 Random Glucose 113 H Calcium 9.3 Total Bilirubin 0.6 AST 25 ALT 36 Alkaline Phosphatase 94 Creatine Kinase 62 Troponin I < 0.02 Total Protein 7.3 Albumin 3.7 ASSESSMENT/PLAN: 54 y/o F PMHx HTN (with multiple hospitalization for elevated BP), HLD, GERD, ?DM, Recently diagnosed with Anxiety (started on SSRI) presents with chest pain. #Atypical Chest Pain #HTN #HLD #GERD #?DM #Anxiety -Possibly due to Anxiety however must r/o ACS -CXR does not reveal Pneumothorax, Infiltrate. CTA Negative -EKG NSR, without ST segment changes, VR 71, QTc 406. Will Repeat -Trop < 0.02 x1, Trend -DIANA Risk Index score 15 (Low Risk); Will calculate ASCVD 10 year risk pending further labwork -ASA 81mg daily -Check Lipid panel, A1c, TSH -Echo to be determined by cardio -Cardio (Dr. Dawkins) Consulted -Tele -NPO After midnight for possible stress test pending cardio rec's -ISS BGMs ACHS -Attempt to retrieve records from primary as patient mentions having a stress test within the last 2 years -DVT PPx: Lovenox -Resume home meds after med rec Dispo: Tele-Obs Visit type - Emergency Visit Emergency Visit: Yes ED Registration Date: 02/13/20 Care time: The patient presented to the Emergency Department on the above date and was hospitalized for further evaluation of their emergent condition. - New Patient This patient is new to me today: Yes Date on this admission: 02/13/20 - Critical Care Critical Care patient: No ATTENDING PHYSICIAN STATEMENT I saw and evaluated the patient. I reviewed the resident's note and discussed the case with the resident. I agree with the resident's findings and plan as documented. SUBJECTIVE: OBJECTIVE: ASSESSMENT AND PLAN:
[2020-02-13] MEDS: INSULIN SLIDING SCALE (NOVOLOG) 1 VIAL SQ SCH ×2 (17:00→23:35)
[2020-02-13 18:09] LABS: CHOLESTEROL 163 mg/dL (50-200); HDL CHOLESTEROL 46 mg/dL (40-60); LDL CHOLESTEROL (ONLY SJRH) 85 mg/dL (5-100); TRIGLYCERIDES 235 mg/dL (0-150)
--- NOTE | 2020-02-13 21:07 | HP ---
CHIEF COMPLAINT: Chest Pain HISTORY OF PRESENT ILLNESS: 54yo F with PMHx of HTN, migraines, HLD, thyroid nodules (s/p biopsy - unremark able), occasional AGA, anxiety, obesity who presented to the ED with complaint of chest pain. She is from [facility] and does not speak Bulgarian - her daughter was at bedside and helped with translating. She described the pain as sharp with radiation to her back. When she was at home, she felt the pain then measured her BP. When she saw that her BP was 170/105, she felt a burning sensation from the back of her neck radiating down both her arms. She then took all of her home meds, including metoprolol, tramodol, and adaptol (an anxiolytic mediation sold in [facility] and [place] but not approved for use in the [place]). She explained that some of her meds are from [facility], and that the adaptol helps to calm her down. She also explained that she has had issues with her BP since menopause (~2012), but since two years it has been well controlled - until today. Also, she experiences much anxiety, even more so since her son in [facility] is battling with alcohol use disorder and his just left him. Patient denied NVD, SOB, chills/fevers, cough, abdominal or generalized pain. ER course was notable for: nothing Recent Travel: none PAST MEDICAL HISTORY: HTN, migraines, HLD, thyroid nodules, AGA, anxiety, obesity PAST SURGICAL HISTORY: cholecystectomy Social History: Smoking: denied Alcohol: denied Drugs: denied lives at home with daughter and feels safe Allergies nitroglycerin [From Nitrostat] Adverse Reaction (Verified 02/13/20 07:44) HOME MEDICATIONS: per patient: escitalopram 100 daily - stopped taking approx 3 months ago amlodipine 5mg daily carvedilol 6.25mg daily irbesitran/HCTZ 300-125 daily atorvastatin 20mg daily Tedor PRN for migraines vitD 1.25mg weekly Home Medications Medication Instructions Recorded Escitalopram Oxalate [Lexapro -] 10 mg PO DAILY 06/09/17 Multivitamins [Tab-A-Vit -] 1 tab PO DAILY 06/09/17 Valsartan 160 mg PO BID 06/09/17 Amlodipine Besylate [Norvasc -] 5 mg PO DAILY 02/13/20 Atorvastatin Ca [Lipitor] 20 mg PO DAILY 02/13/20 Carvedilol 6.25 mg PO DAILY 02/13/20 Metoprolol Tartrate 25 mg PO PRN 02/13/20 Vitamin D - 02/13/20 REVIEW OF SYSTEMS per above PHYSICAL EXAMINATION Vital Signs - 24 hr 02/13/20 02/13/20 02/13/20 07:34 13:06 13:08 Temperature 97.8 F Pulse Rate 77 Pulse Rate [ 79 Apical] Respiratory 18 18 Rate Blood Pressure 143/86 Blood Pressure 130/81 [Right Arm] O2 Sat by Pulse 97 98 99 Oximetry (%) 02/13/20 02/13/20 16:00 19:45 Temperature 97.3 F L Pulse Rate Pulse Rate [ 75 64 Apical] Respiratory 18 16 Rate Blood Pressure Blood Pressure 150/85 125/66 [Right Arm] O2 Sat by Pulse 97 97 Oximetry (%) GENERAL: F, overweight, appears stated age, nervous and agitated HEAD: Normal with no signs of trauma, poor dentition EYES: PERRL, direct and consensual reflex intact NECK: extensive adipose tissue, thyroid palpable LUNGS: CTAB, BS audible on pulm auscultation HEART: RRR, S1 S2 clearly appreciated without murmurs ABDOMEN: Soft, nontender, distended, normoactive bowel sounds MUSCULOSKELETAL: Normal range of motion at all joints. No bony deformities or tenderness. No CVA tenderness. UPPER EXTREMITIES: 2+ pulses, warm, well-perfused. No cyanosis. No clubbing. No peripheral edema. LOWER EXTREMITIES: 2+ pulses, warm, well-perfused. No calf tenderness. No peripheral edema. NEUROLOGICAL: Cranial nerves II-XII intact. Normal speech. Normal gait. PSYCHIATRIC: Cooperative. Good eye contact. Appropriate mood and affect. SKIN: Warm, dry, normal turgor, no rashes or lesions noted, normal capillary refill. Laboratory Results - last 24 hr 02/13/20 02/13/20 02/13/20 08:48 08:48 08:48 WBC 6.1 RBC 4.57 Hgb 13.8 Hct 40.5 D MCV 88.7 MCH 30.2 MCHC 34.1 RDW 14.5 D Plt Count 236 D MPV 9.4 D Absolute Neuts (auto) 3.7 Neutrophils % 60.9 Lymphocytes % 27.3 Monocytes % 8.9 Eosinophils % 2.0 Basophils % 0.9 Nucleated RBC % 0 PT with INR 11.70 INR 0.99 Sodium 139 Potassium 3.7 Chloride 105 Carbon Dioxide 25 Anion Gap 9 BUN 13.0 Creatinine 0.8 Est GFR (CKD-EPI)AfAm 98.24 Est GFR (CKD-EPI)NonAf 84.76 POC Glucometer Random Glucose 113 H Calcium 9.3 Total Bilirubin 0.6 AST 25 ALT 36 Alkaline Phosphatase 94 Creatine Kinase 62 Troponin I < 0.02 Total Protein 7.3 Albumin 3.7 Triglycerides Cholesterol Total LDL Cholesterol HDL Cholesterol 02/13/20 02/13/20 16:40 16:50 WBC RBC Hgb Hct MCV MCH MCHC RDW Plt Count MPV Absolute Neuts (auto) Neutrophils % Lymphocytes % Monocytes % Eosinophils % Basophils % Nucleated RBC % PT with INR INR Sodium Potassium Chloride Carbon Dioxide Anion Gap BUN Creatinine Est GFR (CKD-EPI)AfAm Est GFR (CKD-EPI)NonAf POC Glucometer 125 Random Glucose Calcium Total Bilirubin AST ALT Alkaline Phosphatase Creatine Kinase Troponin I < 0.02 Total Protein Albumin Triglycerides 235 H Cholesterol 163 Total LDL Cholesterol 85 HDL Cholesterol 46 ASSESSMENT/PLAN: 54yo F with PMHx of HTN, migraines, HLD, thyroid nodules (s/p biopsy - unremarkable), occasional AGA, anxiety, obesity who presented to the ED with complaint of chest pain and is worked-up for ACS vs anxiety vs AGA vs hyperthyroidism vs Hypertensive emergency. #ACS rule/out - initial and repeat trop < 0.02 - EKG NSR - CXR no acute chest pathology --> r/o PE, pneumothorax - Echo pending - patient asymptomatic since meeting her - received ASA #Anxiety - patient stopped taking her escitalopram 3 months ago - may need outpatient psych or PCP follow up for adequate treatment - stress at home - patient experiences relief when taking her adaptol (Kyr[place]z anxiolytic) #Hyperthyroidism patient has history of thyroid nodules - TSH pending #Hypertensive emergency - unlikely need SBP > 180 with end organ damage to meet criteria - no signs of end organ damage - highest systolic BP was 170 - no visual changes - most common symptom with HTNsive emergency #Dispo: in my opinion patient does not need admission as repeat trop remain unremarkable, no EKG changes, no CXR findings, and patient's symptoms resolved. Highly recommend close f/u with PCP and/or psychiatry, and will notify patient of TSH results if remarkable. Visit type - Emergency Visit Emergency Visit: Yes ED Registration Date: 02/13/20 Care time: The patient presented to the Emergency Department on the above date and was hospitalized for further evaluation of their emergent condition. - New Patient This patient is new to me today: Yes Date on this admission: 02/13/20 - Critical Care Critical Care patient: No ATTENDING PHYSICIAN STATEMENT I saw and evaluated the patient. I reviewed the resident's note and discussed the case with the resident. I agree with the resident's findings and plan as documented. SUBJECTIVE: OBJECTIVE: ASSESSMENT AND PLAN:
--- NOTE | 2020-02-14 06:12 | CON.CARD ---
Consult Consult Specialty:: Cardiology Referred by:: Dr. 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 In ER CTA negative dissection. Patient denies SOB, palps. Had similar episode 2 weeks ago, subsided with BP meds. States BP ahs been high. no prior cardiac hx. Reports stress test 3 years ago negative. 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: Other (Meningioma) Cardio/Vascular: Yes: HTN Hepatobiliary: Yes: Cholelithiasis Renal/: Yes: Other (adrenal adenoma) ...LMP: 02/07/18 ...: No Endocrine: Yes: Hyperthyroidism, Other (Thyroid nodule) - Past Surgical History Past Surgical History: Yes: Breast Biopsy, Cholecystectomy - Alcohol/Substance Use Hx Alcohol Use: No History of Substance Use: reports: None - Smoking History Smoking history: Never smoked Have you smoked in the past 12 months: No - Social History ADL: Independent Occupation: [employer] History of Recent Travel: No Home Medications - Allergies Allergies/Adverse Reactions: Allergies Allergy/AdvReac Type Severity Reaction Status Date / Time nitroglycerin AdvReac Verified 02/13/20 07:44 [From Nitrostat] - Home Medications Home Medications: Ambulatory Orders Escitalopram Oxalate [Lexapro -] 10 mg PO DAILY 06/09/17 Multivitamins [Tab-A-Vit -] 1 tab PO DAILY 06/09/17 Valsartan 160 mg PO BID 06/09/17 Amlodipine Besylate [Norvasc -] 5 mg PO DAILY 02/13/20 Atorvastatin Ca [Lipitor] 20 mg PO DAILY 02/13/20 Carvedilol 6.25 mg PO DAILY 02/13/20 Metoprolol Tartrate 25 mg PO PRN 02/13/20 Vitamin D - 02/13/20 Family Medical History Family History: Unremarkable (no early CAD) Review of Systems - Review of Systems Constitutional: reports: No Symptoms Eyes: reports: No Symptoms HENT: reports: No Symptoms Neck: reports: No Symptoms Cardiovascular: reports: Chest Pain Respiratory: reports: No Symptoms Gastrointestinal: reports: No Symptoms Genitourinary: reports: No Symptoms Breasts: reports: No Symptoms Reported Musculoskeletal: reports: No Symptoms Integumentary: reports: No Symptoms Neurological: reports: No Symptoms Endocrine: reports: No Symptoms Hematology/Lymphatic: reports: No Symptoms Psychiatric: reports: No Symptoms - Risk Factors Known Risk Factors: Yes: Age, Hypertension Vital Signs: Vital Signs Temperature 97.7 F 02/14/20 02:14 Pulse Rate 62 02/14/20 02:14 Respiratory Rate 20 02/14/20 02:14 Blood Pressure 148/88 02/14/20 02:14 O2 Sat by Pulse Oximetry (%) 97 02/13/20 23:23 Constitutional: Yes: No Distress, Calm Eyes: Yes: Conjunctiva Clear, EOM Intact HENT: Yes: Atraumatic, Normocephalic Neck: Yes: Trachea Midline Respiratory: Yes: CTA Bilaterally Gastrointestinal: Yes: Soft, Abdomen, Obese JVD: No Carotid Bruit: No Heart Sounds: Yes: S1, S2 (rrr) Edema: No Peripheral Pulses WNL: Yes Neurological: Yes: Alert, Oriented ...Motor Strength: WNL - Other Data Labs, Other Data: CBC, BMP 02/13/20 08:48 02/13/20 08:48 INR, PTT INR 0.99 (0.83-1.09) 02/13/20 08:48 Troponin, BNP 02/13/20 02/13/20 08:48 16:40 Troponin I < 0.02 < 0.02 Troponin, BNP 02/13/20 02/13/20 08:48 16:40 Troponin I < 0.02 < 0.02 Laboratory Tests 02/13/20 02/13/20 08:48 16:40 Troponin I < 0.02 < 0.02 Laboratory Tests 02/13/20 02/13/20 02/13/20 08:48 08:48 12:59 WBC Hgb Plt Count INR 0.99 Potassium Creatinine Troponin I < 0.02 TSH COVID-19 ([facility]) Pending 02/13/20 02/14/20 02/14/20 16:40 05:30 05:30 WBC 5.8 Hgb 13.5 Plt Count 215 INR Potassium 3.3 L Creatinine 0.8 Troponin I < 0.02 TSH 1.62 COVID-19 ([facility]) Echo: Pending Imaging - Results Cat Scan: Report Reviewed EKG: Image Reviewed Assessment/Plan IMP: Atypical CP Chronic HTN Adrenal adenoma REC: 1. Atypical CP: -Enzymes negative -Echo -Stress MPI today 2. HTN: -Observe BP trend and adjust meds for goal of < 140/90 3. Adrenal adenoma: -As per primary team -Suggest outpt pheo work up -outpt labs r/o Conn's syndrome
[2020-02-14 06:48] LABS: BASO % 0.9 % (0-2.0); EOS % 2.9 % (0-4.5); HEMATOCRIT 39.4 % (32.4-45.2); HEMOGLOBIN 13.5 GM/dL (10.7-15.3); LYMPH % 39.9 % (8-40); MCH 30.7 pg (25.7-33.7); MCHC 34.3 g/dl (32.0-36.0); MEAN CELL VOLUME 89.4 fl (80-96); MEAN PLT VOLUME 9.2 fl (7.5-11.1); MONO % 13.4 % (3.8-10.2); NEUT % 42.9 % (42.8-82.8); PLATELET COUNT 215 K/MM3 (134-434); RBC 4.41 M/mm3 (3.60-5.2); RDW 14.2 % (11.6-15.6); WHITE BLOOD COUNT 5.8 K/mm3 (4.0-10.0)
[2020-02-14] MEDS: INSULIN SLIDING SCALE (NOVOLOG) 1 VIAL SQ SCH ×4 (07:14→22:38)
[2020-02-14 07:19] LABS: ALBUMIN 3.5 g/dl (3.4-5.0); BILIRUBIN,TOTAL 0.6 mg/dL (0.2-1); BLOOD UREA NITROGEN 13.1 mg/dL (7-18); CALCIUM 8.7 mg/dL (8.5-10.1); CREATININE 0.8 mg/dL (0.55-1.3); MAGNESIUM 2.1 mg/dL (1.8-2.4); PHOSPHOROUS 3.4 mg/dL (2.5-4.9); POTASSIUM 3.3 mmol/L (3.5-5.1); TOT PROT 6.8 g/dl (6.4-8.2)
[2020-02-14] MEDS ORDERED: POTASSIUM CHLORIDE TABS 20 MEQ TABLET.ER (FP) PO ONE ×2 (07:37→15:30)
[2020-02-14] MEDS: amLODIPine BESYLATE 5 MG TABLET (FP) PO SCH ×2 (08:50→15:19)
[2020-02-14] MEDS ORDERED: REGADENOSON 0.4 MG/5 ML PRE-FILLED SYRINGE IVPUSH ONE ×2 (10:00→12:48)
--- NOTE | 2020-02-14 10:53 | ECHO ---
Version: 1 Name: GENO LEBRON Exam: Adult Echocardiogram Study Date: 02/14/2020, 9:48 AM Age: 54 Years MMode/2D Measurements & Calculations IVSd: 1.18 cm LVIDs: 3.2 cm LVIDd: 4.6 cm LVPWd: 1.01 cm LAV (MOD-bp): 53.0 ml ACS: 1.66 cm Ao root diam: 2.9 cm LVOT diam: 1.97 cm LA dimension: 3.7 cm Doppler Measurements & Calculations MV E max rafi: 66.6 cm/sec Med E/e': 12.4 MV A max rafi: 85.4 cm/sec Med Peak E' Rafi: 5.4 cm/sec MV E/A: 0.78 Lat E/e': 10.2 Lat Peak E' Rafi: 6.5 cm/sec Ao max P.7 mmHg RICK(I,D): 2.5 cm Ao mean P.2 mmHg LV V1 mean: 73.8 cm/sec Ao V2 max: 138.5 cm/sec LV V1 mean P.6 mmHg TR max rafi: 213.6 cm/sec TR max P.4 mmHg Left Ventricle Left ventricular systolic function is normal. Ejection Fraction = 60-65%. The transmitral spectral D oppler flow pattern is suggestive of impaired LV relaxation. Right Ventricle The right ventricle is normal in size and function. Atria Normal left and right atrial size and function. Mitral Valve The mitral valve is normal in structure and function. There is no mitral valve stenosis. There is no mitral regurgitation noted. Tricuspid Valve The tricuspid valve is normal in structure and function. There is mild tricuspid regurgitation. Aortic Valve The aortic valve opens well. No hemodynamically significant valvular aortic stenosis. No aortic regu rgitation is present. Pulmonic Valve The pulmonic valve is not well seen, but is grossly normal. There is no pulmonic valvular stenosis. Great Vessels The aortic root is normal size. Pericardium/Pleura There is no pericardial effusion. Tech Comments TDS due to body habitus. Summary Statements Left ventricular systolic function is normal. Ejection Fraction = 60-65%. The transmitral spectral Doppler flow pattern is suggestive of impaired LV relaxation. The right ventricle is normal in size and function. There is mild tricuspid regurgitation. There is no pericardial effusion. MD Mims *Sanjuanita 02/14/2020, 10:53 AM Ordering Physician: Ольга Ramos Referring Physician: ОЛЬГА RAMOS Performed By: Annie Ramirez
--- NOTE | 2020-02-14 12:44 | EKG ---
Test Reason : Blood Pressure : / mmHG Vent. Rate : 071 BPM Atrial Rate : 071 BPM P-R Int : 176 ms QRS Dur : 074 ms QT Int : 374 ms P-R-T Axes : 049 033 024 degrees QTc Int : 406 ms POOR DATA QUALITY, INTERPRETATION MAY BE ADVERSELY AFFECTED NORMAL SINUS RHYTHM NORMAL ECG WHEN COMPARED WITH ECG OF 06-JUN-2017 18:26, NO SIGNIFICANT CHANGE WAS FOUND Confirmed by YAEL TAMAYO MD ([id number]) on 02/14/2020 12:44:26 PM Referred By: Confirmed By:YAEL TAMAYO MD
--- NOTE | 2020-02-14 12:55 | EKG ---
Test Reason : Blood Pressure : / mmHG Vent. Rate : 068 BPM Atrial Rate : 068 BPM P-R Int : 186 ms QRS Dur : 086 ms QT Int : 396 ms P-R-T Axes : 046 031 026 degrees QTc Int : 421 ms NORMAL SINUS RHYTHM NONSPECIFIC ST ABNORMALITY ABNORMAL ECG Confirmed by YAEL TAMAYO MD ([id number]) on 02/14/2020 12:54:45 PM Referred By: Confirmed By:YAEL TAMAYO MD
--- NOTE | 2020-02-14 14:20 | PN ---
Teaching Attending Note Name of Resident: Komal Gilliam ATTENDING PHYSICIAN STATEMENT I saw and evaluated the patient. I reviewed the resident's note and discussed the case with the resident. I agree with the resident's findings and plan as documented. SUBJECTIVE: No overnight events OBJECTIVE: Vital Signs Period Temp Pulse Resp BP Sys/Aceves Pulse Ox Last 24 Hr 97.3 F-97.7 F 62-75 16-20 125-154/66-97 96-98 As per resident note ASSESSMENT AND PLAN: 54 y/o F with HTN, Migraines, HLD, Thyroid nodules, Anxiety, obesity who presents with chest pain Chest Pain R/O ACS troponin negative at this time EKG reviewed-non specifi t wave changes noted continue to monitor on tele Pulses equal on both arms CT chest not suggestive of Dissection Plan for Echo/Stress today--Stress noted to be abnormal Will defer to Cardiology for further management: inpatient vs. outpatient cardiac cath Adrenal Adenoma Likely benign given size Will need further outpatient work up
[2020-02-14] MEDS: ASPIRIN 81 MG CHEWABLE TABLETS PO SCH (15:38)
[2020-02-14] MEDS: ENOXAPARIN NA (PORCINE) 40 MG/0.4 ML DISP.SYRIN SQ SCH (15:38)
[2020-02-14] MEDS ORDERED: ATORVASTATIN CA 10 MG TABLET (FP) PO SCH (22:00)
[2020-02-15] MEDS: INSULIN SLIDING SCALE (NOVOLOG) 1 VIAL SQ SCH ×2 (06:00→11:55)
[2020-02-15 06:03] VITALS: TEMP 98.1
[2020-02-15 08:29] VITALS: BP 139/82; PULSE 76
[2020-02-15] MEDS: amLODIPine BESYLATE 5 MG TABLET (FP) PO SCH (09:14)
[2020-02-15] MEDS: ASPIRIN 81 MG CHEWABLE TABLETS PO SCH (09:14)
[2020-02-15] MEDS: ENOXAPARIN NA (PORCINE) 40 MG/0.4 ML DISP.SYRIN SQ SCH (09:15)
--- NOTE | 2020-02-15 12:47 | PN ---
Progress Note (short form) - Note Progress Note: cc: chest pain s: no chest pain, palps, dizziness, dyspnea. [place] [facility] [place] Current Medications Generic Name Dose Route Start Last Admin Trade Name Dustin PRN Reason Stop Dose Admin Amlodipine Besylate 5 mg 02/14/20 10:00 02/15/20 09:14 Norvasc - PO 5 mg DAILY SAMINA Administration Aspirin 81 mg 02/14/20 10:00 02/15/20 09:14 Asa - PO 81 mg DAILY SAMINA Administration Atorvastatin Calcium 10 mg 02/14/20 22:00 02/14/20 21:30 Lipitor - PO 10 mg HS SAMINA Administration Enoxaparin Sodium 40 mg 02/13/20 15:00 02/15/20 09:15 Lovenox - SQ 40 mg DAILY SAMINA Administration Insulin Aspart 1 vial 02/13/20 16:30 02/15/20 11:55 Novolog Vial Sliding Scale - SQ Not Given ACHS SAMINA Protocol Vital Signs Period Temp Pulse Resp BP Sys/Aceves Pulse Ox Last 24 Hr 97.2 F-98.1 F 69-79 20-20 118-144/70-87 95-97 Constitutional: Yes: No Distress, Calm Eyes: Yes: Conjunctiva Clear, EOM Intact HENT: Yes: Atraumatic, Normocephalic Neck: Yes: Trachea Midline Respiratory: Yes: CTA Bilaterally Gastrointestinal: Yes: Soft, Abdomen, Obese JVD: No Carotid Bruit: No Heart Sounds: Yes: S1, S2 (rrr) Edema: No Peripheral Pulses WNL: Yes Neurological: Yes: Alert, Oriented no jaundice, diaphoresis not agitated echo 02/2020 nl LV/RV function, E/A reversal, RV nl, mild TR mibi 02/2020 ST depressions with regadenoson, nl perfusion, nl EF IMP: Atypical CP Chronic HTN Adrenal adenoma REC: 1. Atypical CP: -Enzymes negative -echo unremarkable - mibi with +ST depression after regadenason - may be high risk feature even with normal perfusion - awaiting transfer [place] [facility] [place] 2. HTN: -Observe BP trend and adjust meds for goal of < 140/90 3. Adrenal adenoma: -As per primary team -Suggest outpt pheo work up -outpt labs r/o Conn's syndrome
--- NOTE | 2020-02-15 18:18 | PN ---
Physical Exam: SUBJECTIVE: Patient seen and examined Patient has no chest pain no shortness of breath has a positive stress test OBJECTIVE: Vital Signs Period Temp Pulse Resp BP Sys/Aceves Pulse Ox Last 24 Hr 97.2 F-98.1 F 69-77 20-20 118-144/70-85 95-97 GENERAL: The patient is awake, alert, and fully oriented, in no acute distress. HEAD: Normal with no signs of trauma. EYES: PERRL, extraocular movements intact, sclera anicteric, conjunctiva clear. No ptosis. ENT: Ears normal, nares patent, oropharynx clear without exudates, moist mucous membranes. NECK: Trachea midline, full range of motion, supple. LUNGS: Breath sounds equal, clear to auscultation bilaterally, no wheezes, no crackles, no accessory muscle use. HEART: Regular rate and rhythm, S1, S2 without murmur, rub or gallop. ABDOMEN: Soft, nontender, nondistended, normoactive bowel sounds, no guarding, no rebound, no hepatosplenomegaly, no masses. EXTREMITIES: 2+ pulses, warm, well-perfused, no edema. NEUROLOGICAL: Cranial nerves II through XII grossly intact. Normal speech, gait not observed. PSYCH: Normal mood, normal affect. SKIN: Warm, dry, normal turgor, no rashes or lesions noted Laboratory Results - last 24 hr 02/13/20 02/14/20 02/15/20 12:59 22:07 05:52 POC Glucometer 119 114 COVID-19 ([facility]) Not detected 02/15/20 11:47 POC Glucometer 107 COVID-19 ([facility]) ASSESSMENT/PLAN: Pain and angina with abnormal stress test. Seen by pecan cleaner today patient is going to [facility] for cardiac catheterization and intervention. Discussed with the patient answered all the questions. Problem List - Problems (1) Precordial chest pain Code(s): R07.2 - PRECORDIAL PAIN Visit type - Emergency Visit Emergency Visit: Yes ED Registration Date: 02/13/20 Care time: The patient presented to the Emergency Department on the above date and was hospitalized for further evaluation of their emergent condition. - New Patient This patient is new to me today: Yes Date on this admission: 02/15/20 - Critical Care Critical Care patient: No - Discharge Referral Referred to [facility] Med P.C.: No
== END 2020-02-15 12:45 | disposition short-term general hospital (02) ==
LOC: JER 07:22 → JERBED 15:21 → INTOOBSV 15:21 → J4W 21:40
PROVIDERS: ADMIT Internal Medicine; ATTEND Internal Medicine
PROC: 3E023GC Introduction of Other Therapeutic Substance into Muscle, Percutaneous Approach (ICD-10-PCS; principal; 2020-02-13)
PROC: 3E033GC Introduction of Other Therapeutic Substance into Peripheral Vein, Percutaneous Approach (ICD-10-PCS; 2020-02-13)
PROC: 3E033NZ Introduction of Analgesics, Hypnotics, Sedatives into Peripheral Vein, Percutaneous Approach (ICD-10-PCS; 2020-02-13)
DX: R07.2 Precordial pain (principal); E78.00 Pure hypercholesterolemia, unspecified; I10 Essential (primary) hypertension; R73.03 Prediabetes; E66.8 Other obesity; Z68.34 Body mass index [BMI] 34.0-34.9, adult; D35.00 Benign neoplasm of unspecified adrenal gland; G43.909 Migraine, unspecified, not intractable, without status migrainosus; E04.1 Nontoxic single thyroid nodule; F41.9 Anxiety disorder, unspecified; Z88.8 Allergy status to other drugs, medicaments and biological substances; Z29.9 Encounter for prophylactic measures, unspecified; K21.9 Gastro-esophageal reflux disease without esophagitis
CPT/HCPCS: 36415; 71046-TC-FY; 71275-TC; 74174-TC; 78452-TC; 80053; 80061; 82550; 82962; 83036; 83721; 83735; 84100; 84443; 84484; 85025; 85610; 93005; 93010; 93017; 93306-TC; 99285-25; A9502; G0378; J0131; J2785; Q9967; U0003

== ENCOUNTER 2020-10-29 04:59 | Day surgery (SDC) | payer OTHER ==
[2020-10-28 15:23] VITALS: BMI 33.5
[2020-10-29 13:36] VITALS: TEMP 97.8
[2020-10-29 13:53] VITALS: BP 132/78
[2020-10-29 14:28] VITALS: PULSE 73
== END 2020-10-29 14:30 | disposition home or self-care (01) ==
LOC: JASU-ENDO 04:59
PROVIDERS: ATTEND Internal Medicine Gastroenterology
PROC: 0DB78ZX Excision of Stomach, Pylorus, Via Natural or Artificial Opening Endoscopic, Diagnostic (ICD-10-PCS; 2020-10-29)
PROC: 0DBN8ZX Excision of Sigmoid Colon, Via Natural or Artificial Opening Endoscopic, Diagnostic (ICD-10-PCS; principal; 2020-10-29 12:56)
DX: K29.50 Unspecified chronic gastritis without bleeding (principal); D12.5 Benign neoplasm of sigmoid colon; R10.13 Epigastric pain; R63.4 Abnormal weight loss; Z68.33 Body mass index [BMI] 33.0-33.9, adult
CPT/HCPCS: 88305-TC; 88342-TC

== ENCOUNTER 2024-12-16 05:51 | Day surgery (SDC) | payer OTHER ==
[2024-12-13 11:30] VITALS: BMI 37.8
[2024-12-16 09:40] VITALS: RESP 16; TEMP 98
[2024-12-16 10:21] VITALS: PULSE 71
[2024-12-16 10:31] VITALS: BP 117/81
== END 2024-12-16 10:30 | disposition home or self-care (01) ==
LOC: JASU-ENDO 05:51
PROVIDERS: ATTEND Internal Medicine Gastroenterology
PROC: 0DB98ZX Excision of Duodenum, Via Natural or Artificial Opening Endoscopic, Diagnostic (ICD-10-PCS; 2024-12-16)
PROC: 0DB78ZX Excision of Stomach, Pylorus, Via Natural or Artificial Opening Endoscopic, Diagnostic (ICD-10-PCS; 2024-12-16)
PROC: 0DB68ZX Excision of Stomach, Via Natural or Artificial Opening Endoscopic, Diagnostic (ICD-10-PCS; 2024-12-16)
PROC: 0DJD8ZZ Inspection of Lower Intestinal Tract, Via Natural or Artificial Opening Endoscopic (ICD-10-PCS; principal; 2024-12-16 09:00)
DX: Z12.11 Encounter for screening for malignant neoplasm of colon (principal); Z86.0100 Personal history of colon polyps, unspecified; K21.00 Gastro-esophageal reflux disease with esophagitis, without bleeding; K44.9 Diaphragmatic hernia without obstruction or gangrene; K29.60 Other gastritis without bleeding
CPT/HCPCS: 88305-TC; 88342-TC